=== PATIENT | female | born 1995 | race Caucasian/White ===

== ENCOUNTER 2024-01-14 22:44 | Emergency (ER) | payer OTHER ==
[~2024-01-14] VITALS: Ht 175.3 cm; Wt 87.0 kg
[2024-01-14 22:51] VITALS: O2SAT 100
[2024-01-14 23:13] VITALS: BP 105/63; PULSE 76; RESP 20; TEMP 98.8; O2SAT 100
== END 2024-01-14 23:51 | disposition left against medical advice (07) ==
LOC: ER 22:44
DX: M25.571 Pain in right ankle and joints of right foot (principal); Z53.21 Procedure and treatment not carried out due to patient leaving prior to being seen by health care provider